=== PATIENT | female | born 1960 | race Caucasian/White ===

== ENCOUNTER → 2020-12-12 | Outpatient (CLI) | payer BC ==
[2020-12-12 16:34] LABS: HCT 42.4 % (34.0-46.0); HGB 13.9 gm/dL (11.4-16.0); MCH 29.1 pg (25.0-35.0); MCHC 32.8 g/dL (31.0-37.0); Mean Platelet Volume 8.4; Platelet Count 320 k/uL (150-450); RBC 4.76 m/uL (3.80-5.40); RDW 13.4 % (11.5-15.5); WBC 7.5 k/uL (3.8-10.6)
[2020-12-12 16:36] LABS: Appearance,Urine Cloudy (Clear); Bacteria,Urine Rare /hpf; Bilirubin,Urine Negative (Negative); Blood,Urine Negative (Negative); Cellular Casts,Urine 1 /lpf (0); Color,Urine Yellow; Glucose,Urine (UA) Negative (Negative); Hyaline Casts,Urine 12 /lpf (0-2); Ketones,Urine Negative (Negative); Leukocyte Esterase,Urine Large (Negative); Mucus,Urine Occasional /hpf; Nitrite,Urine Negative (Negative); Protein,Urine Negative (Negative); RBC,Urine 1 /hpf (0-5); Squamous Epithelial Cell,Urine 1 /hpf (0-4); Urobilinogen,Urine <2.0 mg/dL (<2.0); WBC,Urine 17 /hpf (0-5)
[2020-12-12 16:43] LABS: Albumin 4.6 g/dL (3.5-5.0); Calcium 10.2 mg/dL (8.4-10.2); Potassium 4.2 mmol/L (3.5-5.1); Total Bilirubin 0.3 mg/dL (0.2-1.3); Total Protein 7.1 g/dL (6.3-8.2)
[2020-12-12 16:49] LABS: INR 0.9 (<1.2); Partial Thromboplastin Time 22.4 sec (22.0-30.0); Prothrombin Time 9.8 sec (9.0-12.0)
== END | disposition home or self-care (01) ==
LOC: LABPAT 15:52
PROVIDERS: ATTEND Orthopaedic Surgery
DX: Z01.818 Encounter for other preprocedural examination (principal); M16.12 Unilateral primary osteoarthritis, left hip; I44.7 Left bundle-branch block, unspecified; R94.31 Abnormal electrocardiogram [ECG] [EKG]
CPT/HCPCS: 36415; 80053; 81001; 85027; 85610; 85730; 87070; 93005

== ENCOUNTER 2020-12-19 11:27 | Day surgery (SDC) | payer BC ==
[2020-12-13 12:20] VITALS: BMI 35.3
[~2020-12-19 11:27] MED LIST: ACETAMINOPHEN TAB 500 MG TAB PO PRN; GABAPENTIN 300 MG CAP PO PRN; HYDROmorphone 0.5 MG/0.5 ML SYRINGE IVP PRN; LIDOCAINE 1% (10MG/ML) FOR IV START INTRADERMA PRN; MELOXICAM 7.5 MG TAB PO PRN; METOCLOPRAMIDE 5 MG/ML 2 ML VIAL IVP PRN; MIDAZOLAM 2 MG/2 ML VIAL IV PRN; ROPIVACAINE/EPI/CLONIDINE/KET 50 ML SYRINGE MISCELLANE PRN; TRANEXAMIC ACID 1,000 MG in SODIUM CHLORIDE 0.9% 100 ML IVPB PRN
[2020-12-19] MEDS ORDERED: LACTATED RINGERS 1,000 ML IV ONE ×2 (12:00)
[2020-12-19] MEDS: ONDANSETRON 4 MG/2 ML VIAL IVP ONE ×2 (12:14→16:13)
[2020-12-19] MEDS: DEXAMETHASONE SOD PHOSPHATE 4 MG/ML 1 ML VIAL IV ONE ×2 (12:15→16:13)
[2020-12-19] MEDS ORDERED: HYDROmorphone 1 MG/ML 1 ML SYRINGE IVP PRN (12:30)
[2020-12-19] MEDS ORDERED: HYDROmorphone 0.2 MG/1 ML SYRINGE IVP PRN (12:30)
[2020-12-19] MEDS ORDERED: HYDROmorphone 0.5 MG/0.5 ML SYRINGE IVP PRN (12:30)
[2020-12-19] MEDS ORDERED: NALOXONE 0.4 MG/ML 1 ML VIAL IV PRN ×2 (12:30→12:58)
[2020-12-19] MEDS ORDERED: ONDANSETRON 4 MG/2 ML VIAL IVP PRN (12:30)
[2020-12-19] MEDS ORDERED: HYDROcodone/APAP 7.5-325MG 1 EACH TAB PO PRN (12:32)
[2020-12-19] MEDS ORDERED: TRANEXAMIC ACID 1,000 MG/10 ML VIAL ONE (12:54)
[2020-12-19] MEDS ORDERED: SODIUM CHLORIDE 0.9% IRRIG 1,000 ML BTL IRRIGATION ONE (12:54)
[2020-12-19] MEDS ORDERED: fentaNYL (PF) 50 MCG/ML 2 ML AMP ONE (12:54)
[2020-12-19] MEDS ORDERED: HEPARIN SODIUM,PORCINE 10,000 UNIT/ML 1 ML VIAL ONE (12:54)
[2020-12-19] MEDS ORDERED: PHENYLEPHRINE-0.9% NACL SYG 1,000 MCG/10 ML SYRINGE ONE (12:54)
[2020-12-19] MEDS ORDERED: PROPOFOL 10 MG/ML 20 ML VIAL IV ONE (12:54)
[2020-12-19] MEDS ORDERED: SODIUM CHLORIDE 0.9% 100 ML BAG ONE (12:54)
[2020-12-19] MEDS ORDERED: MIDAZOLAM 2 MG/2 ML VIAL ONE (12:54)
[2020-12-19] MEDS ORDERED: MAGNESIUM HYDROXIDE 2,400 MG/10 ML CUP PO PRN (12:58)
[2020-12-19] MEDS ORDERED: hydrOXYzine pamoate 25 MG CAP PO PRN (12:58)
--- NOTE | 2020-12-19 14:13 | P.OP ---
Date of Procedure: 12/19/20 Preoperative Diagnosis: Severe Osteoarthritis left hip Postoperative Diagnosis: Severe osteoarthritis left hip Procedure(s) Performed: Left total hip arthroplasty with a direct anterior approach Implants: [employer] Polarstem standard size 4 [employer] R3, 3 hole hemispherical acetabular shell, 48 mm [employer] Reflection 6.5 mm cancellus screw, 20 mm 2 [employer] R3, XLPE 20 acetabular liner [employer] Oxinium femoral head 32 m, +0 All components were press-fit. The articulation is Oxinium on polyethylene. Anesthesia: spinal Surgeon: Erlin Lange Boarding Specialist #1: Delmis Catalan Estimated Blood Loss (ml): 100 Pathology: other (Femoral head) Condition: stable Disposition: PACU Indications for Procedure: After failure of conservative treatment we discussed the surgical and nonsurgical treatment options at length. Patient wishes to proceed with a total hip arthroplasty with a direct anterior approach. Complications specific to this procedure were discussed at length, including but not limited to infection, leg length discrepancy, dislocation, nerve injury, and fracture. Covid-19 was also discussed at length with the patient, and they are aware of the current policies and procedures. The patient was given the option of delaying surgery, but they elect to proceed knowing these risks. Patient is aware of all these complications and informed consent was obtained Operative Findings: The operative findings are consistent with severe osteoarthritis of the left hip Description of Procedure: Patient was seen and evaluated in the preoperative area and the consent was reviewed. The operative site was marked with a skin marker. The patient was then brought to the operating room and given preoperative antibiotics in travenously. 1 g of Tranexamic acid was also given intravenously. A spinal anesthetic was administered by the anesthesia department. The patient was then placed on the Eagar table with the bony prominences well-padded. The hip area was then prepped with a ChloraPrep solution and draped in the usual sterile fashion. A universal timeout was then performed, which confirmed the patient's name, stephen rgical site, ALLERGIES, and procedure being performed on the consent. Next the incision site was located at 1 cm distal to the anterior superior iliac spine along the flexion crease of the hip. The skin and subcutaneous tissues were sharply incised. Incision was carefully dissected down to the fascia overlying the tensor fascia joanna muscle. This fascia was then incised in line with the incision. Care was taken to stay laterally in order to avoid injuring the lateral femoral cutaneous nerve. Next, using blunt finger dissection, the tensor fascia joanna muscle was dissected off its investing fascia. The muscle was then carefully retracted laterally with a cobra retractor over the lateral neck of the femur. Next, the circumflex vessels were identified and cauterized using the AquaMantis device. The anterior hip capsule was then exposed. The capsule was then opened and an inverted T fashion. Cobra retractors were then placed intracapsularly. The retractors were maintained intracapsular throughout the procedure. The proximal femur was then visualized. A small amount of traction was placed on the leg. The femoral neck was then osteotomized appropriate level above the lesser trochanter. A small wedge of bone was then removed from the remaining femoral head. Next, using a corkscrew the femoral head was removed from the acetabulum. On gross visual inspection, the femoral head had complete loss of articular cartilage and multiple periarticular osteophytes. The femoral head was then measured. Attention was then turned to the acetabulum. The acetabulum was exposed and any remaining labrum was excised. Sequential reaming of the acetabulum was performed using fluoroscopic guidance until there was a good bed of bleeding cancellus bone. When the appropriate size was reached, a trial was then placed. The position and fit of the trial was checked with fluoroscopy. The trial was then removed. Then, using fluoroscopic guidance, the final implant was impacted at 20 of anteversion and 40 of abduction, and fully seated in the acetabulum. 2 screws were then placed in the acetabulum. Again fluoroscopy was used to check position of the screws. Next, the liner was then impacted, with a 20 elevated liner located in the anterior superior quadrant. Component locking was confirmed. Attention was then directed to the femur. With the aid of the Eagar table, the femur was externally rotated to approximately 130, extended, and adducted under the opposite leg. A side hook was then placed under the proximal femur, and the side hook elevator was used to elevate the proximal femur while releasing the capsule. Retractors were then placed. A capsular release was performed, as well as a release of the conjoined tendon, which afforded excellent visualizatio n of the proximal femur. Next, a box osteotome was used to lateralize the proximal femur. A soft metals engraver hand was then used to locate the femoral canal. Sequential broaching was then performed with appropriate size which afforded excellent fixation in the proximal femur. A trial was then placed with appropriate head and neck, and the hip was gently reduced with the aid of the Eagar table. Fluoroscopy was then used to check position of the components, as well as to ensure equal leg lengths. The hip was then gently dislocated and the trials were then removed. Final implants were then impacted and the hip was again reduced. Final fluoroscopic x-rays confirmed that the components were in anatomic position, as well as equal leg lengths. The hip was also taken through range of motion, and found to be stable. The hip was then copiously irrigated with antibiotic solution with pulsatile lavage. The hip was then irrigated with Irrisept solution. The soft tissues were then injected with a ropivacaine solution, which consisted of 246.25 mg of ropivacaine, 0.5 mg of epinephrine, 30 mg of Toradol, 80 g of clonidine, and 48.45 mL of sterile water, for a total of 100 mL of fluid injected. A second dose of 1 g of Tranexamic acid was also given intravenously. Any blood collected by Cell Saver was then returned to the patient at this time. The fascia was then closed with 2-0 strata fix suture. The subcutaneous tissue was closed with 3-0 Vicryl. The subcuticular tissue was closed with 3-0 strata fix suture. The skin was then closed with Exofin skin glue. After the glue and dried, and Optifoam silver impregnated dressing was applied. The patient was then transferred to the recovery room in stable condition. The assistant cook TRISTON Parham was required due to the complexity of surgery, and the need for skilled surgical instrument mechanic for positioning, draping, exposure, retraction, and closure of the wound.
--- NOTE | 2020-12-19 14:59 | FL ---
Fluoroscopy History: LEFT HIP ARTHROPLASTY Left hip arthroplasty. 26 seconds fluoro time. 2 images.
--- NOTE | 2020-12-19 15:06 | XR ---
EXAMINATION TYPE: XR Hip Limited LT DATE OF EXAM: 12/19/2020 CLINICAL HISTORY: Postoperative evaluation TECHNIQUE: Single portable view of the left hip was submitted. FINDINGS: Noted are changes of total hip arthroplasty with femoral and acetabular components appearin g well seated. Alignment is anatomic. Postsurgical soft tissue changes are evident. IMPRESSION: Satisfactory postoperative alignment
[2020-12-19] MEDS: LACTATED RINGERS 1,000 ML IV SCH (16:13)
[2020-12-19] MEDS: SODIUM CHLORIDE 0.9% 1,000 ML IV SCH (16:14)
--- NOTE | 2020-12-19 16:56 | P.CONS ---
<Julián Roa - Last Filed: 12/19/20 17:17> History of Present Illness - Reason for Consult Consult date: 12/19/20 - History of Present Illness History of Presenting Illness: Patient is a 60-year-old female with a past medical history of hypertension, hyperlipidemia and osteoarthritis. She is currently admitted under orthopedic surgery team with Dr. Lange status post left total hip arthroplasty secondary to severe osteoarthritis of left hip. We have been consulted to follow along throughout admission for continued medical management. Patient was seen and fully evaluated at bedside. She reports postoperative pain currently 4 out of 10. States that she feels the pain distal to her surgical site. Patient has been tolerating oral intake without any episodes of postoperative nausea or vomiting. Sensation and movement of left lower extremity remains intact. Patient denies having any headache, lightheadedness, dizziness, chest pain, palpitations, shortness of breath, or experiencing any weakness or swelling in extremities. Patient denies history of DVT or PE. Review of systems: Pertinent positives and negatives as discussed in HPI, a complete review of systems was performed and all other systems are negative. Physical exam: Vital signs reviewed and stable. General: Nontoxic, no distress and appears stated age. Derm: Skin warm and dry, normal coloration for ethnicity. Postoperative dressing to left anterior superior thigh, no noted bleeding or drainage present. Head: Atraumatic, normocephalic and symmetric. Eyes: EOMs intact, no lid lag, and anicteric sclera Mouth: no lip lesions, mucus membranes moist Cardiovascular: regular rate and rhythm with normal S1S2, no murmur, positive posterior tibial pulses bilaterally, and cap refill < 2 seconds. Lungs: Respirations even, regular, and unlabored on room air. Lungs CTA bilaterally, no rhonchi, no rales, no wheezing, and no accessory muscle usage. Abdominal: soft, nontender to palpation, no guarding, no appreciable organomegaly Ext: ROM and sensation intact. No gross muscle atrophy, no edema, no contractures Neuro: Speech clear, face symmetrical and CN II-XII grossly intact with no noted focal neuro deficits Psych: Alert and oriented to person, place, time, and situation. Appropriate and pleasant affect. Assessment and Plan of Care: Status post left total hip arthroplasty -DVT prophylaxis, pain management, weightbearing, PT/OT, and postoperative dressing changes per primary admitting orthopedic surgery team. -Patient currently on DVT prophylaxis with aspirin 81 mg twice a day as well as SCDs -Fall precautions in place. Hypertension -Monitor vital signs and Continue daily medication regimen with losartan/hydrochlorothiazide. Hyperlipidemia -Continue daily medication regimen with gemfibrozil. -Heart healthy diet Osteoarthritis of right hip -Patient reports plans to undergo total left hip arthroplasty in near future. -Symptomatic care and pain management. Thank you for allowing us to participate in the care of this pleasant patient. Do not hesitate to contact us with questions. Someone can be reached from the [facility] hospitalist group all hours of the day at [phone] or via [employer]. Past Medical History Past Medical History: GERD/Reflux, Hypertension, Osteoarthritis (OA) Additional Past Medical History / Comment(s): arthritis cele hips, vertigo/motion sickness, thyroid nodules, L2-3 compression with spondylolisthesis. History of Any Multi-Drug Resistant Organisms: None Reported Past Surgical History: Section, Cholecystectomy, Hysterectomy, Joint Re placement Additional Past Surgical History / Comment(s): total knees, fx left wrist with hardware, 4 pins in SI joints, x2, partial hysterectomy, laser sinus surgery. Past Anesthesia/Blood Transfusion Reactions: Motion Sickness, Postoperative Nausea & Vomiting (PONV) Additional Past Anesthesia/Blood Transfusion Reaction / Comm: son=ponv Past Psychological History: No Psychological Hx Reported Smoking Status: Never smoker Past Alcohol Use History: None Reported Past Drug Use History: None Reported - Past Family History Father Family Medical History: Cancer Additional Family Medical History / Comment(s): iga myeloma Medications and Allergies Home Medications Medication Instructions Recorded Confirmed Type Gabapentin [Neurontin] 200 mg PO BID 12/13/20 12/19/20 History Gemfibrozil [Lopid] 600 mg PO DAILY 12/13/20 12/19/20 History Losartan/Hydrochlorothiazide 1 tab PO DAILY 12/13/20 12/19/20 History [Hyzaar 50-12.5 Tablet] Cyclobenzaprine [Flexeril] 10 mg PO BID PRN 12/14/20 12/19/20 History Diclofenac Sodium [Voltaren] 75 mg PO BID 12/14/20 12/14/20 History Nitrofurantoin Monohyd/M-Cryst 100 mg PO Q12HR 12/14/20 12/19/20 History [Macrobid] Omeprazole 20 mg PO DAILY 12/14/20 12/19/20 History Aspirin [Adult Low Dose Aspirin EC] 81 mg PO BID 30 Days #60 tablet. 12/19/20 Rx HYDROcodone/APAP 7.5-325MG [[place] 1 - 2 tab PO Q6H PRN #32 tab 12/19/20 Rx 7.5-325] Sennosides [Senokot] 2 tab PO DAILY PRN #60 tablet 12/19/20 Rx Allergies Allergy/AdvReac Type Severity Reaction Status Date / Time Iodine and Iodide Containing Allergy Unknown Itching Verified 12/19/20 11:44 Produc With iodine product applied to skin nickel Allergy Itching Verified 12/19/20 11:44 aspirin AdvReac Unknown Nausea Verified 12/19/20 11:44 ciprofloxacin [From Cipro] AdvReac Unknown MUSCLE Verified 12/19/20 11:44 ACHES, TENDONS "SNAPPING" WITH MOVEMENT. Sulfa (Sulfonamide AdvReac Unknown BLISTER ON Verified 12/19/20 11:44 Antibiotics) ABDOMEN, BLISTER IN MOUTH Physical Exam Vitals: Vital Signs Temp Pulse Pulse Resp BP BP Pulse Ox 12/19/20 15:45 97.6 F 88 16 94/55 94 L 12/19/20 15:28 85 14 108/64 95 12/19/20 15:15 82 16 107/61 93 L 12/19/20 15:02 84 110/74 98 12/19/20 14:57 88 16 103/56 95 12/19/20 14:52 91 16 97/55 94 L 12/19/20 14:45 89 16 90/53 97 12/19/20 14:33 97.2 F L 100 12 80/50 95 12/19/20 11:49 97.5 F L 115 H 16 129/86 99 Intake and Output 12/19/20 12/19/20 12/19/20 06:59 14:59 22:59 Intake Total 750 Output Total 100 Balance 650 Intake: IV 750 Output: Estimated Blood Loss 100 Other: Weight 90.7 kg <Tonia Ma - Last Filed: 12/19/20 19:11> History of Present Illness - History of Present Illness Patient seen and examined independently. Patient was also seen by Julián Roa NP and case was discussed. I am in agreement with subjective, physical exam, assessment and plan as written above and amended below. Pain is currently well controlled, no nausea or vomiting. We discussed that she should take her pain pills as well as aspirin with food and she'll likely tolerate better. Patient is nervous about ambulating tomorrow as she know she is her right hip done as well. Patient was encouraged to work with therapy. General: non toxic, no distress, appears at stated age Derm: warm, dry Head: atraumatic, normocephalic, symmetric Eyes: EOMI, no lid lag, anicteric sclera Mouth: no lip lesion, mucus membranes moist Cardiovascular: S1S2 reg, no murmur, positive posterior tibial pulse bilateral, Lungs: CTA bilateral, no rhonchi, no rales , no accessory muscle use Physical Exam Osteopathic Statement: *. No significant issues noted on an osteopathic structural exam other than those noted in the History and Physical/Consult. Vitals: Vital Signs Temp Pulse Pulse Resp BP BP Pulse Ox 12/19/20 17:34 96 120/74 12/19/20 17:10 90 118/80 12/19/20 16:55 94 108/75 12/19/20 16:40 92 114/76 12/19/20 16:25 88 118/79 12/19/20 16:10 86 110/73 12/19/20 15:55 90 111/74 97 12/19/20 15:45 97.6 F 88 16 94/55 94 L 12/19/20 15:28 85 14 108/64 95 12/19/20 15:15 82 16 107/61 93 L 12/19/20 15:02 84 110/74 98 12/19/20 14:57 88 16 103/56 95 12/19/20 14:52 91 16 97/55 94 L 12/19/20 14:45 89 16 90/53 97 12/19/20 14:33 97.2 F L 100 12 80/50 95 12/19/20 11:49 97.5 F L 115 H 16 129/86 99 Intake and Output 12/19/20 12/19/20 12/19/20 06:59 14:59 22:59 Intake Total 750 Output Total 100 Balance 650 Intake: IV 750 Output: Estimated Blood Loss 100 Other: # Voids 0 Weight 90.7 kg 90.7 kg
[2020-12-19] MEDS: HYDROcodone/APAP 7.5-325MG 1 EACH TAB PO PRN (18:25)
[2020-12-19] MEDS: ASPIRIN 81 MG PO SCH (20:14)
[2020-12-19] MEDS ORDERED: SENNOSIDES-DOCUSATE SODIUM 1 EACH TAB PO SCH (21:00)
[2020-12-20] MEDS: HYDROcodone/APAP 7.5-325MG 1 EACH TAB PO PRN ×2 (01:01→07:04)
[2020-12-20] MEDS: SODIUM CHLORIDE 0.9% 1,000 ML IV SCH (01:03)
[2020-12-20] MEDS: LACTATED RINGERS 1,000 ML IV SCH (01:50)
[2020-12-20 07:29] VITALS: BP 104/67; PULSE 82; RESP 18; TEMP 99.2
[2020-12-20] MEDS ORDERED: PANTOPRAZOLE 40 MG TABLET PO SCH (07:30)
--- NOTE | 2020-12-20 08:45 | P.PN ---
<Julián Roa - Last Filed: 12/20/20 13:36> Subjective Progress Note Date: 12/20/20 Hospital course: Patient is a 60-year-old female with a past medical history of hypertension, h yperlipidemia and osteoarthritis. She is currently day 1 postoperative for elective total left hip arthroplasty and is admitted under orthopedic surgery team with Dr. Lange. We have been consulted to follow along throughout admission for continued medical management. Physical exam: Patient was seen and fully evaluated at the bedside this morning. She was sitting up in the chair and doing well. Patient has been ambulating with walker without difficulties. Patient reports significant improvement in her pain/discomfort. Reports only mild achiness to left upper and lateral thigh and hip currently rating 2-3 out of 10. Patient denies having any other complaints including headache, lightheadedness, dizziness, chest pain, palpitations, short ness of breath, postoperative nausea or vomiting, or experiencing any numbness/tingling/weakness in her extremities. In and sensation of lower left distal extremity intact. Labs reviewed showing no significant abnormalities with the exception of mild anemia with hemoglobin of 10.7. Vital signs reviewed and stable. General: Nontoxic, no distress and appears stated age. Derm: Skin warm and dry, normal coloration for ethnicity. Postoperative dressing to left anterior superior thigh, no noted bleeding or drainage present. Head: Atraumatic, normocephalic and symmetric. Eyes: EOMs intact, no lid lag, and anicteric sclera Mouth: no lip lesions, mucus membranes moist Cardiovascular: regular rate and rhythm with normal S1S2, no murmur, positive posterior tibial pulses bilaterally, and cap refill < 2 seconds. Lungs: Respirations even, regular, and unlabored on room air. Lungs CTA bilat erally, no rhonchi, no rales, no wheezing, and no accessory muscle usage. Abdominal: soft, nontender to palpation, no guarding, no appreciable organomegaly Ext: ROM and sensation intact. No gross muscle atrophy, no edema, no contractures Neuro: Speech clear, face symmetrical and CN II-XII grossly intact with no noted focal neuro deficits Psych: Alert and oriented to person, place, time, and situation. Appropriate and pleasant affect. Assessment and Plan of Care: Status post left total hip arthroplasty, postoperative day 1 -DVT prophylaxis, pain management, weightbearing, PT/OT, and postoperative dressing changes per primary admitting orthopedic surgery team. -Patient currently on DVT prophylaxis with aspirin 81 mg twice a day as well as SCDs -Fall precautions in place. Hypertension -Monitor vital signs and Continue daily medication regimen with losartan/hydro chlorothiazide. Hyperlipidemia -Continue daily medication regimen with gemfibrozil. -Heart healthy diet Osteoarthritis of right hip -Patient reports plans to undergo total right hip arthroplasty in near future. -Symptomatic care and pain management. Thank you for allowing us to participate in the care of this pleasant patient. Do not hesitate to contact us with questions. Someone can be reached from the [facility] hospitalist group all hours of the day at [phone] or via [employer]. Objective - Vital Signs Vital signs: Vital Signs Temp 99.2 F 12/20/20 07:29 Pulse 82 12/20/20 08:00 Resp 18 12/20/20 08:00 BP 104/67 12/20/20 07:29 Pulse Ox 98 12/20/20 07:29 Intake & Output 12/19/20 12/20/20 12/20/20 18:59 06:59 18:59 Intake Total 750 Output Total 100 Balance 650 Weight 90.7 kg Intake: IV 750 Output: Estimated Blood Loss 100 Other: # Voids 0 1 - Labs CBC & Chem 7: 12/20/20 06:51 <Tonia Ma - Last Filed: 12/20/20 19:15> Subjective Julián Roa NP rendered care for this patient independently, reviewed the findings and plan as documented in the note above. I did not physically speak with or examine the patient on this date. Objective - Vital Signs Vital signs: Vital Signs Temp 99.2 F 12/20/20 07:29 Pulse 82 12/20/20 08:00 Resp 18 12/20/20 08:00 BP 104/67 12/20/20 07:29 Pulse Ox 98 12/20/20 07:29 Intake & Output 12/20/20 12/20/20 12/21/20 06:59 18:59 06:59 Other: # Voids 1 - Labs CBC & Chem 7: 12/20/20 06:51 Labs: Abnormal Lab Results - Last 24 Hours (Table) 12/20/20 Range/Units 06:51 WBC 10.08 H (4.50-10.00) X 10*3/uL RBC 3.58 L (4.10-5.20) X 10*6/uL Hgb 10.7 L (12.0-15.0) g/dL Hct 32.5 L (37.2-46.3) %
[2020-12-20] MEDS ORDERED: LOSARTAN-HCTZ 50-12.5 MG 1 EACH TAB PO SCH (09:00)
[2020-12-20] MEDS ORDERED: GABAPENTIN 100 MG CAP PO SCH (09:00)
[2020-12-20] MEDS ORDERED: FENOFIBRATE 160 MG TAB PO SCH (09:00)
--- NOTE | 2020-12-20 09:05 | P.DS ---
Providers Expected date of discharge: 12/20/20 Attending physician: Erlin Lange Consults: 12/19/20 12:58 Consult Physician Routine Consulting Provider: Tonia Ma Consult Reason/Comments: medical management Do you want consulting provider notified?: Yes Primary care physician: Teodora Downey - Discharge Diagnosis(es) (1) S/P total hip arthroplasty Current Visit: Yes Status: Acute (2) Osteoarthritis of left hip Current Visit: Yes Status: Acute Hospital Course: This is a 60-year-old female with known history of degenerative arthritis of the left hip. The patient presented for evaluation as an outpatient. After discussion and consideration patient elects to proceed with total hip arthroplasty. The patient is seen preoperatively by Dr. Lange and medically cleared for surgery by their primary care physician. Patient is admitted to [facility] on 12/19/2020 for total hip arthroplasty. The procedure is performed without complication or sequelae. The patient is doing well postoperatively. Labs and vital signs are stable on day of discharge. On day of discharge patient's hip incision is healing well. There is minimal erythema. There is no drainage noted at this time. There is minimal soft tissue swelling to the hip and thigh. Patient has full foot and ankle motion without difficulty or pain. Calf is soft and nontender to palpation. Neurovascular status to the left lower extremity is intact. Patient is discharged home in good condition. Opioid start talking form is reviewed and signed. Please see med rec for accurate list of home medications. Plan - Discharge Summary Discharge Rx Participant: Yes New Discharge Prescriptions: New Sennosides [Senokot] 2 tab PO DAILY PRN #60 tablet PRN Reason: Constipation Aspirin [Adult Low Dose Aspirin EC] 81 mg PO BID 30 Days #60 tablet. Ondansetron Odt [Zofran Odt] 4 mg PO Q8HR PRN #30 tab PRN Reason: Nausea HYDROcodone/APAP 7.5-325MG [[place] 7.5-325] 1 - 2 tab PO Q6H PRN #32 tab PRN Reason: Pain Continue Losartan/Hydrochlorothiazide [Hyzaar 50-12.5 Tablet] 1 tab PO DAILY Gemfibrozil [Lopid] 600 mg PO DAILY Omeprazole 20 mg PO DAILY Discontinued Nitrofurantoin Monohyd/M-Cryst [Macrobid] 100 mg PO Q12HR No Action Diclofenac Sodium [Voltaren] 75 mg PO BID Gabapentin [Neurontin] 200 mg PO BID Cyclobenzaprine [Flexeril] 10 mg PO BID PRN PRN Reason: Muscle Pain Discharge Medication List Gabapentin [Neurontin] 200 mg PO BID 12/13/20 [History] Gemfibrozil [Lopid] 600 mg PO DAILY 12/13/20 [History] Losartan/Hydrochlorothiazide [Hyzaar 50-12.5 Tablet] 1 tab PO DAILY 12/13/20 [History] Cyclobenzaprine [Flexeril] 10 mg PO BID PRN 12/14/20 [History] Diclofenac Sodium [Voltaren] 75 mg PO BID 12/14/20 [History] Omeprazole 20 mg PO DAILY 12/14/20 [History] Aspirin [Adult Low Dose Aspirin EC] 81 mg PO BID 30 Days #60 tablet. 12/19/20 [Rx] Sennosides [Senokot] 2 tab PO DAILY PRN #60 tablet 12/19/20 [Rx] HYDROcodone/APAP 7.5-325MG [[place] 7.5-325] 1 - 2 tab PO Q6H PRN #32 tab 12/20/20 [Rx] Ondansetron Odt [Zofran Odt] 4 mg PO Q8HR PRN #30 tab 12/20/20 [Rx] Follow up Appointment(s)/Referral(s): Erlin Lange DO [Doctor of Osteopathic Medicine] - 2 Weeks Activity/Diet/Wound Care/Special Instructions: Weightbearing as tolerated with walker. Leave dressing intact. Dressing may be removed by home care nurse in 7 days. Then change dressing twice daily until follow up. May shower with dressing on and when initial dressing is removed. Please take aspirin 325 mg twice daily for 30 days to prevent blood clots. Please wear compression stockings during the day until follow-up appointment to help prevent blood clots. May remove at night. Follow-up with [facility] in 2 weeks, please call with any questions or concerns [phone] Discharge Disposition: HOME WITH HOME HEALTH SERVICES
[2020-12-20] MEDS: ASPIRIN 81 MG PO SCH (09:40)
[2020-12-20 12:53] LABS: Basophils # (A) 0.03 X 10*3/uL (0.00-0.10); Basophils % (A) 0.3 %; Eosinophils # (A) 0.14 X 10*3/uL (0.04-0.35); Eosinophils % (A) 1.4 %; HCT 32.5 % (37.2-46.3); HGB 10.7 g/dL (12.0-15.0); Lymphocytes # (A) 1.98 X 10*3/uL (0.90-5.00); Lymphocytes % (A) 19.6 %; MCH 29.9 pg (27.0-32.0); MCHC 32.9 g/dL (32.0-37.0); MCV 90.8 fL (80.0-97.0); Mean Platelet Volume 12.2 fL (9.5-12.2); Monocytes # (A) 0.73 X 10*3/uL (0.20-1.00); Monocytes % (A) 7.2 %; Neutrophils # (A) 7.17 X 10*3/uL (1.80-7.70); Neutrophils % (A) 71.2 %; Platelet Count 228 X 10*3/uL (140-440); RBC 3.58 X 10*6/uL (4.10-5.20); RDW 12.6 % (11.5-14.5); WBC 10.08 X 10*3/uL (4.50-10.00)
== END 2020-12-20 13:14 | disposition home health service (06) ==
LOC: OR 11:27 → 4SSUR 14:34 → OR 12-20 13:14
PROVIDERS: ATTEND Orthopaedic Surgery
DX: M16.12 Unilateral primary osteoarthritis, left hip (principal); R26.81 Unsteadiness on feet; I10 Essential (primary) hypertension; E78.00 Pure hypercholesterolemia, unspecified; E78.5 Hyperlipidemia, unspecified; K21.9 Gastro-esophageal reflux disease without esophagitis; Z97.3 Presence of spectacles and contact lenses; Z98.890 Other specified postprocedural states; Z96.653 Presence of artificial knee joint, bilateral; Z90.49 Acquired absence of other specified parts of digestive tract; Z90.710 Acquired absence of both cervix and uterus; Z98.891 History of uterine scar from previous surgery; Z82.49 Family history of ischemic heart disease and other diseases of the circulatory system; Z79.899 Other long term (current) drug therapy; Z88.6 Allergy status to analgesic agent; Z88.1 Allergy status to other antibiotic agents; Z88.2 Allergy status to sulfonamides; Z91.048 Other nonmedicinal substance allergy status; Z83.3 Family history of diabetes mellitus
CPT/HCPCS: 97161; 97165; 86891; 86900; 86901; 85025; 86850; 88300; 73501; 27130; C1776; J2250; J1644; J1100; J0690 ×2; J2405 ×2; J3010; J2370; J2704

== ENCOUNTER → 2021-03-16 | Outpatient (CLI) | payer BC ==
[2021-03-16 17:29] LABS: HCT 39.2 % (34.0-46.0); HGB 12.9 gm/dL (11.4-16.0); MCH 29.4 pg (25.0-35.0); MCV 89.2 fL (80.0-100.0); Mean Platelet Volume 8.6; Platelet Count 291 k/uL (150-450); RBC 4.39 m/uL (3.80-5.40); RDW 13.3 % (11.5-15.5); WBC 6.7 k/uL (3.8-10.6)
[2021-03-16 17:42] LABS: Albumin 4.5 g/dL (3.5-5.0); Potassium 3.9 mmol/L (3.5-5.1); Total Bilirubin 0.3 mg/dL (0.2-1.3); Total Protein 7.1 g/dL (6.3-8.2)
[2021-03-16 17:43] LABS: Appearance,Urine Clear (Clear); Bilirubin,Urine Negative (Negative); Blood,Urine Negative (Negative); Color,Urine Light Yellow; Glucose,Urine (UA) Negative (Negative); Ketones,Urine Negative (Negative); Leukocyte Esterase,Urine Small (Negative); Nitrite,Urine Negative (Negative); PH, Urine 6.5 (5.0-8.0); Protein,Urine Negative (Negative); RBC,Urine 1 /hpf (0-5); Specific Gravity,Urine 1.011 (1.001-1.035); Squamous Epithelial Cell,Urine <1 /hpf (0-4); Urobilinogen,Urine <2.0 mg/dL (<2.0); WBC,Urine 2 /hpf (0-5)
[2021-03-16 17:44] LABS: INR 0.9 (<1.2); Partial Thromboplastin Time 22.7 sec (22.0-30.0); Prothrombin Time 9.5 sec (9.0-12.0)
== END | disposition home or self-care (01) ==
LOC: LABPAT 16:30
PROVIDERS: ATTEND Orthopaedic Surgery
DX: Z01.812 Encounter for preprocedural laboratory examination (principal); M16.11 Unilateral primary osteoarthritis, right hip
CPT/HCPCS: 36415; 80053; 81001; 85027; 85610; 85730; 86850; 86900; 86901; 87070

== ENCOUNTER 2021-03-27 08:04 | Day surgery (SDC) | payer BC ==
[2021-03-16 17:29] LABS: HCT 39.2 % (34.0-46.0); HGB 12.9 gm/dL (11.4-16.0); MCH 29.4 pg (25.0-35.0); MCV 89.2 fL (80.0-100.0); Mean Platelet Volume 8.6; Platelet Count 291 k/uL (150-450); RBC 4.39 m/uL (3.80-5.40); RDW 13.3 % (11.5-15.5); WBC 6.7 k/uL (3.8-10.6)
[2021-03-16 17:42] LABS: Albumin 4.5 g/dL (3.5-5.0); Potassium 3.9 mmol/L (3.5-5.1); Total Bilirubin 0.3 mg/dL (0.2-1.3); Total Protein 7.1 g/dL (6.3-8.2)
[2021-03-16 17:43] LABS: Appearance,Urine Clear (Clear); Bilirubin,Urine Negative (Negative); Blood,Urine Negative (Negative); Color,Urine Light Yellow; Glucose,Urine (UA) Negative (Negative); Ketones,Urine Negative (Negative); Leukocyte Esterase,Urine Small (Negative); Nitrite,Urine Negative (Negative); PH, Urine 6.5 (5.0-8.0); Protein,Urine Negative (Negative); RBC,Urine 1 /hpf (0-5); Specific Gravity,Urine 1.011 (1.001-1.035); Squamous Epithelial Cell,Urine <1 /hpf (0-4); Urobilinogen,Urine <2.0 mg/dL (<2.0); WBC,Urine 2 /hpf (0-5)
[2021-03-16 17:44] LABS: INR 0.9 (<1.2); Partial Thromboplastin Time 22.7 sec (22.0-30.0); Prothrombin Time 9.5 sec (9.0-12.0)
[2021-03-22 16:16] VITALS: BMI 35.3
[~2021-03-27 08:04] MED LIST changes: +DEXAMETHASONE SOD PHOSPHATE 4 MG/ML 1 ML VIAL IV ONE; -METOCLOPRAMIDE 5 MG/ML 2 ML VIAL IVP PRN; -MIDAZOLAM 2 MG/2 ML VIAL IV PRN; +ONDANSETRON 4 MG/2 ML VIAL IVP ONE; -ROPIVACAINE/EPI/CLONIDINE/KET 50 ML SYRINGE MISCELLANE PRN
[2021-03-27] MEDS ORDERED: LACTATED RINGERS 1,000 ML IV ONE (08:44)
[2021-03-27] MEDS ORDERED: SCOPOLAMINE 1.5MG/72HR PATCH TRANSDERM ONE (08:47)
[2021-03-27] MEDS ORDERED: HYDROmorphone 0.5 MG/0.5 ML SYRINGE IVP PRN (08:53)
[2021-03-27] MEDS ORDERED: HYDROmorphone 0.2 MG/1 ML SYRINGE IVP PRN (08:53)
[2021-03-27] MEDS ORDERED: NALOXONE 0.4 MG/ML 1 ML VIAL IV PRN (08:53)
[2021-03-27] MEDS ORDERED: HYDROmorphone 1 MG/ML 1 ML SYRINGE IVP PRN (08:53)
[2021-03-27] MEDS ORDERED: ONDANSETRON 4 MG/2 ML VIAL IVP PRN (08:53)
[2021-03-27] MEDS ORDERED: MAGNESIUM HYDROXIDE 2,400 MG/10 ML CUP PO PRN (08:53)
[2021-03-27] MEDS ORDERED: HYDROcodone/APAP 7.5-325MG 1 EACH TAB PO PRN (08:55)
[2021-03-27] MEDS ORDERED: KETAMINE 10 MG/ML 20 ML VIAL ONE (09:04)
[2021-03-27] MEDS ORDERED: TRANEXAMIC ACID 1,000 MG/10 ML VIAL ONE (09:04)
[2021-03-27] MEDS ORDERED: HEPARIN SODIUM,PORCINE 10,000 UNIT/ML 1 ML VIAL ONE (09:04)
[2021-03-27] MEDS ORDERED: PHENYLEPHRINE-0.9% NACL SYG 1,000 MCG/10 ML SYRINGE ONE (09:04)
[2021-03-27] MEDS ORDERED: MIDAZOLAM 2 MG/2 ML VIAL ONE (09:04)
[2021-03-27] MEDS ORDERED: SODIUM CHLORIDE 0.9% 100 ML BAG ONE (09:04)
[2021-03-27] MEDS ORDERED: ePHEDrine 50 MG/ML 1 ML AMP ONE (09:04)
[2021-03-27] MEDS ORDERED: SODIUM CHLORIDE 0.9% IRRIG 1,000 ML BTL IRRIGATION ONE (09:04)
[2021-03-27] MEDS ORDERED: PROPOFOL 10 MG/ML 20 ML VIAL IV ONE (09:04)
[2021-03-27] MEDS ORDERED: ceFAZolin 1,000 MG in SODIUM CHLORIDE 0.9% 1,000 ML IRRIGATION ONE (09:09)
[2021-03-27] MEDS: ROPIVACAINE/EPI/CLONIDINE/KET 50 ML SYRINGE MISCELLANE PRN ×2 (09:34→10:15)
--- NOTE | 2021-03-27 10:25 | P.OP ---
Date of Procedure: 03/27/21 Preoperative Diagnosis: Severe osteoarthritis right hip Postoperative Diagnosis: Severe osteoarthritis right hip Procedure(s) Performed: Right total lip arthroplasty with a direct anterior approach Implants: [employer] Polarstem standard size 4 [employer] R3, 3 hole hemispherical acetabular shell, 48 mm [employer] Reflection 6.5 mm cancellus screw, 20 mm 2 [employer] R3, XLPE 20 acetabular liner [employer] Oxinium femoral head 32 m, -3 All components were press-fit. The articulation is Oxinium on polyethylene. Anesthesia: spinal Surgeon: Erlin Lange Granulator Operator #1: Delmis Catalan Estimated Blood Loss (ml): 200 (65 mL returned with Cell Saver) Pathology: other (Femoral head) Condition: stable Disposition: PACU Indications for Procedure: After failure of conservative treatment we discussed the surgical and nonsurgical treatment options at length. Patient wishes to proceed with a total hip arthroplasty with a direct anterior approach. Complications specific to this procedure were discussed at length, including but not limited to infection, leg length discrepancy, dislocation, nerve injury, and fracture. Covid-19 was also discussed at length with the patient, and they are aware of the current policies and procedures. The patient was given the option of delaying surgery, but they elect to proceed knowing these risks. Patient is aware of all these complications and informed consent was obtained Operative Findings: The operative findings are consistent with severe osteoarthritis of the right hip Description of Procedure: Patient was seen and evaluated in the preoperative area and the consent was reviewed. The operative site was marked with a skin marker. The patient was then brought to the operating room and given preoperative antibiotics intravenously. 1 g of Tranexamic acid was also given intravenously. A spinal anesthetic was administered by the anesthesia department. The patient was then placed on the [place] table with the bony prominences well-padded. The hip area was then prepped with a ChloraPrep solution and draped in the usual sterile fashion. A universal timeout was then performed, which confirmed the patient's name, surgical site, ALLERGIES, and procedure being performed on the consent. Next the incision site was located at 1 cm distal and 2 cm lateral to the anterior superior iliac spine. The skin and subcutaneous tissues were sharply incised. Incision was carefully dissected down to the fascia overlying the tensor fascia joanna muscle. This fascia was then incised in line with the incision. Care was taken to stay laterally in order to avoid injuring the lateral femoral cutaneous nerve. Next, using blunt finger dissection, the tensor fascia joanna muscle was dissected off its investing fascia. The muscle was then carefully retracted laterally with a cobra retractor over the lateral neck of the femur. Next, the circumflex vessels were identified and cauterized using the AquaMantis device. The anterior hip capsule was then exposed. The capsule was then opened and an inverted T fashion. Cobra retractors were then placed intracapsularly. The retractors were maintained intracapsular throughout the procedure. The proximal femur was then visualized. A small amount of traction was placed on the leg. The femoral neck was then osteotomized appropriate level above the lesser trochanter. A small wedge of bone was then removed from the remaining femoral head. Next, using a corkscrew the femoral head was removed from the acetabulum. On gross visual inspection, the femoral head had complete loss of articular cartilage and multiple periarticular osteophytes. The femoral head was then measured. Attention was then turned to the acetabulum. The acetabulum was exposed and any remaining labrum was excised. Sequential reaming of the acetabulum was performed using fluoroscopic guidance until there was a good bed of bleeding cancellus bone. When the appropriate size was reached, a trial was then placed. The position and fit of the trial was checked with fluoroscopy. The trial was then removed. Then, using fluoroscopic guidance, the final implant was impacted at 20 of anteversion and 40 of abduction, and fully seated in the acetabulum. 2 screws were then placed in the acetabulum. Again fluoroscopy was used to check position of the screws. Next, the liner was then impacted, with a 20 elevated liner located in the anterior superior quadrant. Component locking was confirmed. Attention was then directed to the femur. With the aid of the [place] table, the femur was externally rotated to approximately 130, extended, and adducted under the opposite leg. A side hook was then placed under the proximal femur, and the side hook elevator was used to elevate the proximal femur while releasing the capsule. Retractors were then placed. A capsular release was performed, as well as a release of the conjoined tendon, which afforded excellent visualization of the proximal femur. Next, a box osteotome was used to lateralize the proximal femur. A scrap handler was then used to locate the femoral canal. Sequential broaching was then performed with appropriate size which afforded excellent fixation in the proximal femur. A trial was then placed with appropriate head and neck, and the hip was gently reduced with the aid of the [place] table. Fluoroscopy was then used to check position of the components, as well as to ensure equal leg lengths. The hip was then gently dislocated and the trials were then removed. Final implants were then impacted and the hip was again reduced. Final fluoroscopic x-rays confirmed that the components were in anatomic position, as well as equal leg lengths. The hip was also taken through range of motion, and found to be stable. The hip was then copiously irrigated with antibiotic solution with pulsatile lavage. The hip was then irrigated with Irrisept solution. The soft tissues were then injected with a ropivacaine solution, which consisted of 246.25 mg of ropivacaine, 0.5 mg of epinephrine, 30 mg of Toradol, 80 g of clonidine, and 48.45 mL of sterile water, for a total of 100 mL of fluid injected. A second dose of 1 g of Tranexamic acid was also given intravenously. Any blood collected by Cell Saver was then returned to the patient at this time. The fascia was then closed with 2-0 strata fix suture. The subcutaneous tissue was closed with 3-0 Vicryl. The subcuticular tissue was closed with 3-0 strata fix suture. The skin was then closed with Exofin skin glue. After the glue and dried, and Optifoam silver impregnated dressing was applied. The patient was then transferred to the recovery room in stable condition. The assistant track coach TRISTON Parham was required due to the complexity of surgery, and the need for skilled pediatric dental assistant for positioning, draping, exposure, retraction, and closure of the wound.
--- NOTE | 2021-03-27 11:19 | FL ---
EXAMINATION TYPE: FL guidance operating room, XR Hip Limited RT DATE OF EXAM: 03/27/2021 FLUOROSCOPY Fluoroscopy time of 1 minute 7 seconds was used during anterior right hip replacement. 2 image/s doc ument/s the procedure.
[2021-03-27] MEDS ORDERED: FLUTICASONE 50MCG/SPRAY NASAL 16GM EA NOSTRIL PRN (13:24)
[2021-03-27 15:10] VITALS: RESP 18
[2021-03-27] MEDS: SODIUM CHLORIDE 0.9% 1,000 ML IV SCH ×2 (15:10→21:58)
[2021-03-27] MEDS: PANTOPRAZOLE 40 MG TABLET PO SCH (15:20)
[2021-03-27] MEDS: HYDROcodone/APAP 7.5-325MG 1 EACH TAB PO PRN ×2 (15:22→22:02)
[2021-03-27] MEDS: ASPIRIN 325 MG TAB PO SCH (20:17)
[2021-03-27] MEDS ORDERED: SENNOSIDES-DOCUSATE SODIUM 1 EACH TAB PO SCH (21:00)
--- NOTE | 2021-03-27 23:15 | P.CONS ---
History of Present Illness - Reason for Consult Consult date: 03/27/21 Medical management - Chief Complaint Right total hip arthroplasty - History of Present Illness Patient is a 60-year-old female with a known history of hypertension, thyroid nodules, GERD, osteoarthritis and previous history of bilateral knee replacement and left hip replacement was admitted to the hospital for elective right total hip arthroplasty. Patient tolerated the procedure well. Currently lying in the bed comfortably. Pain is controlled. No complaints of chest pain or shortness of breath. Postoperatively blood pressure was 98/50 6 mmHg and heart rate 85 pulse ox 96% on 2 L. Denied any complaints of nausea or vomiting. No headache or dizziness or lightheadedness. No cough or sputum production. Patient has been afebrile. Laboratory data showed sodium 137 potassium 3.9 BUN 21 and creatinine 0.89 blood sugar 105 alk phos 206 and AST 22 ALT 13 and urinalysis is negative for infection. WBC 6.7 hemoglobin 12.9 and platelets 291 COVID-19 PCR not detected. Review of Systems Constitutional: Patient denies any fever or chills . No generalized weakness or weight loss. Abdomen: Patient denied nausea vomiting and diarrhea and abdominal pain. Cardiovascular: Patient denies any chest pain or short of breath no palpitations. Respiratory: patient denied any cough or sputum production. No shortness of breath Neurologic: Patient denied any numbness or tingling headache. Musculoskeletal: Patient denies any complaints of joint swelling or deformity. Skin: Negative Psychiatric: Negative Endocrine: No heat or cold intolerance. No recent weight gain. Genitourinary: No dysuria or hematuria. 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 History of Any Multi-Drug Resistant Organisms: None Reported Past Surgical History: Section, Cholecystectomy, Hysterectomy, Joint Replacement, Orthopedic Surgery Additional Past Surgical History / Comment(s): cele knee replacements, ORIF left wrist, 4 pins in SI joints, laser sinus surg., left hip replaced November 2020 Past Anesthesia/Blood Transfusion Reactions: Motion Sickness, Postoperative Nausea & Vomiting (PONV) Additional Past Anesthesia/Blood Transfusion Reaction / Comm: usually gets sick w/anesthesia Smoking Status: Never smoker - Past Family History Father Family Medical History: Cancer Additional Family Medical History / Comment(s): iga myeloma Medications and Allergies Home Medications Medication Instructions Recorded Confirmed Type Gemfibrozil [Lopid] 600 mg PO DAILY 12/13/20 03/22/21 History Losartan/Hydrochlorothiazide 1 tab PO DAILY 12/13/20 03/22/21 History [Hyzaar 50-12.5 Tablet] Omeprazole 20 mg PO DAILY 12/14/20 03/22/21 History Fluticasone Nasal [place] [Flonase 2 spray EA NOSTRIL DAILY PRN 03/22/21 03/22/21 History Nasal [place]] Aspirin 325 mg PO BID #60 tab 03/27/21 Rx HYDROcodone/APAP 7.5-325MG [[place] 1 - 2 tab PO Q6H PRN #32 tab 03/27/21 Rx 7.5-325] Ondansetron Odt [Zofran Odt] 1 tab PO Q8HR PRN #10 tab 03/27/21 Rx Sennosides [Senokot] 2 tab PO DAILY PRN #60 tablet 03/27/21 Rx Allergies Allergy/AdvReac Type Severity Reaction Status Date / Time Iodine and Iodide Containing Allergy Unknown Itching Verified 03/22/21 12:41 Produc With iodine product applied to skin nickel Allergy Itching Verified 03/22/21 12:41 tramadol Allergy nausea,fatigue,very Verified 03/22/21 12:41 sleepy aspirin AdvReac Unknown Nausea Verified 03/22/21 12:41 ciprofloxacin [From Cipro] AdvReac Unknown MUSCLE Verified 03/22/21 12:41 ACHES, TENDONS "SNAPPING" WITH MOVEMENT. Sulfa (Sulfonamide AdvReac Unknown BLISTER ON Verified 03/22/21 12:41 Antibiotics) ABDOMEN, BLISTER IN MOUTH Physical Exam Vitals: Vital Signs Temp Pulse Resp BP Pulse Ox 03/27/21 12:03 93 16 109/61 95 03/27/21 11:48 85 16 98/56 96 03/27/21 11:33 82 18 110/57 93 L 03/27/21 11:17 79 18 104/58 92 L 03/27/21 11:02 84 18 101/58 97 03/27/21 10:47 96.8 F L 90 16 98/61 94 L Intake and Output 03/26/21 03/27/21 03/27/21 22:59 06:59 14:59 Intake Total 951 Output Total 200 Balance 751 Intake: IV 951 Output: Estimated Blood Loss 200 Other: Weight 94.7 kg PHYSICAL EXAMINATION: Patient is lying in the bed comfortably, no acute distress, awake alert and oriented.. HEENT: Normocephalic. Neck is supple. Pupils reactive. Nostrils clear. Oral cavity is moist. Neck reveals no JVD, carotid bruits, or thyromegaly. CHEST EXAMINATION: Trachea is central. Symmetrical expansion. Lung potts clear to auscultation and percussion. CARDIAC: Normal S1, S2 with no gallops. No murmurs ABDOMEN: Soft. Bowel sounds normal. No organomegaly. No abdominal bruits. Extremities: reveal no edema. No clubbing or cyanosis Neurologically awake, alert, oriented x3 with well-coordinated movements. No focal deficits noted Skin: No rash or skin lesions. Psychiatric: Cooperative. Nonsuicidal Musculoskeletal: No joint swelling or deformity. Normal range of motion.right hip surgical site is bandaged. Results CBC & Chem 7: 03/16/21 17:00 03/16/21 17:00 Assessment and Plan Assessment: Status post right total hip arthroplasty, Postoperative day 0. Osteoarthritis with prior history of bilateral knee and left hip arthroplasty. Hypertension currently patient is hypotensive. Likely due to anesthesia and pain medications. Thyroid nodules. Hyperlipidemia History of L2-3 compression with spondylolisthesis Osteoarthritis DVT prophylaxis Plan: Patient is currently on losartan/hydrochlorothiazide at home and blood pressures usually well controlled. We will hold antihypertensives due to hypotension and monitor blood pressure closely. patient was encouraged with incentive spirometry and ambulation. DVT prophylaxis and stool softeners as needed. Monitor CBC and continue with her home medications. We will follow with you and further recommendations based on clinical course. Thank you for your consult.
[2021-03-28] MEDS: HYDROcodone/APAP 7.5-325MG 1 EACH TAB PO PRN ×2 (05:07→12:24)
[2021-03-28 08:21] VITALS: BP 101/61; PULSE 73; TEMP 98.1
[2021-03-28] MEDS: ASPIRIN 325 MG TAB PO SCH (08:57)
[2021-03-28] MEDS: PANTOPRAZOLE 40 MG TABLET PO SCH (08:57)
--- NOTE | 2021-03-28 08:58 | P.DS ---
Providers Expected date of discharge: 03/28/21 Attending physician: Erlin Lange Consults: 03/27/21 08:53 Consult Physician Routine Consulting Provider: Viktoria Angelo Consult Reason/Comments: medical management Do you want consulting provider notified?: Yes Primary care physician: Teodora Downey - Discharge Diagnosis(es) (1) Osteoarthritis of right hip Current Visit: Yes Status: Acute (2) S/P total right hip arthroplasty Current Visit: Yes Status: Acute Hospital Course: This is a 60-year-old female with known history of degenerative arthritis of the right hip. The patient presented for evaluation as an outpatient. After discussion and consideration patient elects to proceed with total hip arthroplasty. The patient is seen preoperatively by Dr. Lange and medically cleared for surgery by their primary care physician. Patient is admitted to [facility] on 03/27/2021 for total hip arthroplasty. The procedure is performed without complication or sequelae. The patient is doing well postoperatively. Labs and vital signs are stable on day of discharge. On day of discharge patient's hip incision is healing well. There is minimal erythema. There is no drainage noted at this time. There is minimal soft tissue swelling to the hip and thigh. Patient has full foot and ankle motion without difficulty or pain. Calf is soft and nontender to palpation. Neurovascular status to the right lower extremity is intact. Patient is discharged home in good condition. Opioid start talking form is reviewed and signed. Please see [facility] rec for accurate list of home medications. Plan - Discharge Summary Discharge Rx Participant: Yes New Discharge Prescriptions: New Aspirin 325 mg PO BID #60 tab HYDROcodone/APAP 7.5-325MG [[place] 7.5-325] 1 - 2 tab PO Q6H PRN #32 tab PRN Reason: Pain Sennosides [Senokot] 2 tab PO DAILY PRN #60 tablet PRN Reason: Constipation Ondansetron Odt [Zofran Odt] 1 tab PO Q8HR PRN #10 tab PRN Reason: Nausea No Action Losartan/Hydrochlorothiazide [Hyzaar 50-12.5 Tablet] 1 tab PO DAILY Gemfibrozil [Lopid] 600 mg PO DAILY Omeprazole 20 mg PO DAILY Fluticasone Nasal [place] [Flonase Nasal [place]] 2 spray EA NOSTRIL DAILY PRN PRN Reason: allergies Discharge Medication List Gemfibrozil [Lopid] 600 mg PO DAILY 12/13/20 [History] Losartan/Hydrochlorothiazide [Hyzaar 50-12.5 Tablet] 1 tab PO DAILY 12/13/20 [History] Omeprazole 20 mg PO DAILY 12/14/20 [History] Fluticasone Nasal [place] [Flonase Nasal [place]] 2 spray EA NOSTRIL DAILY PRN 03/22/21 [History] Aspirin 325 mg PO BID #60 tab 03/27/21 [Rx] HYDROcodone/APAP 7.5-325MG [[place] 7.5-325] 1 - 2 tab PO Q6H PRN #32 tab 03/27/21 [Rx] Ondansetron Odt [Zofran Odt] 1 tab PO Q8HR PRN #10 tab 03/27/21 [Rx] Sennosides [Senokot] 2 tab PO DAILY PRN #60 tablet 03/27/21 [Rx] Follow up Appointment(s)/Referral(s): Erlin Lange DO [Doctor of Osteopathic Medicine] - 2 Weeks Patient Instructions/Handouts: *Surgery [facility] - Scopalamine Patch Instructions Activity/Diet/Wound Care/Special Instructions: Weightbearing as tolerated with walker. Leave dressing intact. Dressing may be removed by home care nurse or by patient in 7 days. Then change dressing twice daily until follow up. May shower with initial dressing intact and after removal. If dressing become saturated, please remove. Please take aspirin 325mg twice daily for 30 days to prevent blood clots. Recommend use of compression stockings daily until follow up to help prevent swelling and blood clots. May remove at night before sleeping. Please follow-up with [facility] in 2 weeks and call with any questions or concerns, . Discharge Disposition: HOME WITH HOME HEALTH SERVICES
[2021-03-28] MEDS ORDERED: FENOFIBRATE 160 MG TAB PO SCH (09:00)
[2021-03-28 09:48] LABS: African American GFR (CKD) 85 (>60 ml/min/1.73 sqM); Anion Gap 7 mmol/L; Blood Urea Nitrogen 19 mg/dL (7-17); Calcium 8.7 mg/dL (8.4-10.2); Carbon Dioxide 26 mmol/L (22-30); Chloride 103 mmol/L (98-107); Glucose 103 mg/dL (74-99); Non-African American GFR(CKD) 74 (>60 ml/min/1.73 sqM); Potassium 3.2 mmol/L (3.5-5.1); Sodium 136 mmol/L (137-145)
[2021-03-28 10:03] LABS: Basophils # (A) 0.04 X 10*3/uL (0.00-0.10); Basophils % (A) 0.4 %; Eosinophils # (A) 0.07 X 10*3/uL (0.04-0.35); Eosinophils % (A) 0.7 %; HCT 29.6 % (37.2-46.3); HGB 9.3 g/dL (12.0-15.0); Lymphocytes # (A) 2.33 X 10*3/uL (0.90-5.00); MCH 27.8 pg (27.0-32.0); MCHC 31.4 g/dL (32.0-37.0); MCV 88.6 fL (80.0-97.0); Mean Platelet Volume 11.9 fL (9.5-12.2); Monocytes # (A) 0.69 X 10*3/uL (0.20-1.00); Monocytes % (A) 6.8 %; Neutrophils # (A) 6.96 X 10*3/uL (1.80-7.70); Neutrophils % (A) 68.8 %; Platelet Count 245 X 10*3/uL (140-440); RBC 3.34 X 10*6/uL (4.10-5.20); RDW 13.5 % (11.5-14.5); WBC 10.12 X 10*3/uL (4.50-10.00)
[2021-03-28] MEDS ORDERED: Potassium Replacement Protocol 1 EACH MISC MISCELLANE PRN (10:07)
[2021-03-28] MEDS: POTASSIUM CHLORIDE ER 20 MEQ TAB.ER PO SCH ×2 (11:33→12:25)
--- NOTE | 2021-03-28 15:14 | P.PN ---
Subjective Progress Note Date: 03/28/21 - Reason for Consult Consult date: 03/27/21 Medical management - Chief Complaint Right total hip arthroplasty - History of Present Illness Patient is a 60-year-old female with a known history of hypertension, thyroid nodules, GERD, osteoarthritis and previous history of bilateral knee replacement and left hip replacement was admitted to the hospital for elective right total hip arthroplasty. Patient tolerated the procedure well. Currently lying in the bed comfortably. Pain is controlled. No complaints of chest pain or shortness of breath. Postoperatively blood pressure was 98/50 6 mmHg and heart rate 85 pulse ox 96% on 2 L. Denied any complaints of nausea or vomiting. No headache or dizziness or lig htheadedness. No cough or sputum production. Patient has been afebrile. Laboratory data showed sodium 137 potassium 3.9 BUN 21 and creatinine 0.89 blood sugar 105 alk phos 206 and AST 22 ALT 13 and urinalysis is negative for infection. WBC 6.7 hemoglobin 12.9 and platelets 291 COVID-19 PCR not detected. 03/28/2021 Patient is Seen and evaluated in follow-up with no acute overnight issues. Patient had some follow-up labs this morning the hemoglobin of 9.3, sodium is 136, potassium is 3.2 and will be replaced, creatinine is 0.85. White blood count is 10.12 which is most likely reactive. Patient is currently sitting up in the chair with street clothes on awaiting to be discharged. Patient states she feels good and is ready to go home. Patient awaiting for her to arrive. Following along with orthopedic surgery and recommending following up with primary care provider in the next few days with repeat labs to monitor WBC, hemoglobin, and potassium. Patient verbalized understanding. Review of systems: Constitutional: No reports of fatigue, fever, or chills Cardiovascular: No reports of chest pain or palpitations Respiratory: No reports of shortness of breath or cough GI: No reports of nausea, vomiting, or diarrhea : No reports of dysuria or retention Neurovascular: No reports of weakness or numbness All medications have been reviewed Physical exam: Patient is lying in the bed comfortably, no acute distress, awake alert and oriented.. HEENT: Normocephalic. Neck is supple. Pupils reactive. Nostrils clear. Oral cavity is moist. Neck reveals no JVD, carotid bruits, or thyromegaly. CHEST EXAMINATION: Trachea is central. Symmetrical expansion. Lung potts clear to auscultation and percussion. CARDIAC: Normal S1, S2 with no gallops. No murmurs ABDOMEN: Soft. Bowel sounds normal. No organomegaly. No abdominal bruits. Extremities: reveal no edema. No clubbing or cyanosis Neurologically awake, alert, oriented x3 with well-coordinated movements. No focal deficits noted Skin: No rash or skin lesions. Psychiatric: Cooperative. Nonsuicidal Musculoskeletal: No joint swelling or deformity. Normal range of motion.right hip surgical site is bandaged. Assessment: Status post right total hip arthroplasty, Postoperative day 1 Mild hypokalemia, potassium 3.2 and will replace and recommend outpatient repeat labs in 2-3 days with primary care provider. Osteoarthritis with prior history of bilateral knee and left hip arthroplasty. Hypertension currently patient is hypotensive is normalizing and discussed with patient about resuming home medications starting tomorrow. Likely due to anesthesia and pain medications. Thyroid nodules Hyperlipidemia History of L2-3 compression with spondylolisthesis Osteoarthritis DVT prophylaxis Full code Plan: Recommend continue with current medications and management. Patient is scheduled for discharge with orthopedics today and discussed with the patient about resuming home medications starting tomorrow in keeping a close eye on blood pressure readings and following up with primary care provider this week. Patient potassium mildly low at 3.2 and will replace and prescription provided for repeat labs in the outpatient setting in 2-3 days. Continue to encourage incentive spirometer even in the outpatient setting of at least 10 times every hour while awake. Encourage activity as tolerated and patient states she will be having rehab in the outpatient setting. Will continue to follow with orthopedics during hospitalization. Thank you for this consultation. Objective - Vital Signs Vital signs: Vital Signs Temp 98.1 F 03/28/21 08:00 Pulse 73 03/28/21 08:00 Resp 18 03/28/21 08:00 BP 101/61 03/28/21 08:00 Pulse Ox 97 03/28/21 08:00 Intake & Output 03/27/21 03/28/21 03/28/21 18:59 06:59 18:59 Intake Total 1501 870 Output Total 200 Balance 1301 870 Weight 94.7 kg Intake: IV 951 Intake, IV Titration 870 Amount Sodium Chloride 0.9% 1, 770 000 ml @ 70 mls/hr IV . [id number] Rx#:[id number] ceFAZolin 2 gm In Sodium 100 Chloride 0.9% 50 ml @ 100 mls/hr IVPB Q8HR [facility] Rx# :[id number] Oral 550 Output: Estimated Blood Loss 200 Other: # Voids 1 # Bowel Movements 0 - Labs CBC & Chem 7: 03/28/21 05:20 03/28/21 05:20
== END 2021-03-28 13:51 | disposition home health service (06) ==
LOC: OR 08:04 → 4SSUR 10:40 → OR 03-28 13:51
PROVIDERS: ATTEND Orthopaedic Surgery
DX: M16.11 Unilateral primary osteoarthritis, right hip (principal); I10 Essential (primary) hypertension; E04.2 Nontoxic multinodular goiter; K21.9 Gastro-esophageal reflux disease without esophagitis; E78.00 Pure hypercholesterolemia, unspecified; I44.7 Left bundle-branch block, unspecified; R26.81 Unsteadiness on feet; R42 Dizziness and giddiness; Z96.653 Presence of artificial knee joint, bilateral; Z96.642 Presence of left artificial hip joint; Z98.891 History of uterine scar from previous surgery; Z90.49 Acquired absence of other specified parts of digestive tract; Z90.710 Acquired absence of both cervix and uterus; Z80.8 Family history of malignant neoplasm of other organs or systems; Z97.3 Presence of spectacles and contact lenses; Z98.1 Arthrodesis status; Z82.49 Family history of ischemic heart disease and other diseases of the circulatory system; Z79.82 Long term (current) use of aspirin; Z79.891 Long term (current) use of opiate analgesic; Z79.899 Other long term (current) drug therapy; Z88.6 Allergy status to analgesic agent; Z88.1 Allergy status to other antibiotic agents; Z88.2 Allergy status to sulfonamides; Z91.048 Other nonmedicinal substance allergy status; Z88.5 Allergy status to narcotic agent
CPT/HCPCS: 97161; 97535; 97165; 86891; 86900; 86901; 80053; 80048; 85025; 85027; 85610; 85730; 86850; 81001; 88300; 87070; 87635; 73501; 36415; 27130; C1776; J2250; J1644; J1100; J0690 ×2; J2405; J2370; J2704